=== PATIENT | female | born 1990 | race Caucasian/White ===

== ENCOUNTER 2019-05-22 21:06 | Emergency (ER) | payer OTHER ==
[~2019-05-22] VITALS: Ht 177.8 cm; Wt 111.9 kg
[~2019-05-22 21:06] MED LIST: BENADRYL PO; BIRTH CONTROL PILL PO; PAXIL PO; PHEN-786 PO; SONATA PO; ZOFRAN PO
[2019-05-22 21:09] VITALS: BP 141/88
[2019-05-22] MEDS ORDERED: HYDROcodone/acetaminophen 10/325mg tab PO ONE (22:45)
[2019-05-22] MEDS ORDERED: LIDOcaine 1% w/epiNEPHrine 1:200,000 30ml vial IM ONE (22:45)
[2019-05-22] MEDS ORDERED: HYDR-4353 PO (23:42)
== END 2019-05-22 23:58 | disposition home or self-care (01) ==
LOC: ER 21:07
DX: S62.356A Nondisplaced fracture of shaft of fifth metacarpal bone, right hand, initial encounter for closed fracture (principal); G89.29 Other chronic pain; F41.9 Anxiety disorder, unspecified; Z90.49 Acquired absence of other specified parts of digestive tract; Z98.890 Other specified postprocedural states; Z79.899 Other long term (current) drug therapy; W22.09XA Striking against other stationary object, initial encounter; Y93.89 Activity, other specified; Y92.89 Other specified places as the place of occurrence of the external cause; Y99.8 Other external cause status
CPT/HCPCS: 26605; 73130; 99284

== ENCOUNTER 2019-06-03 16:15 | Outpatient (CLI) | payer OTHER ==
[2019-07-11] MEDS ORDERED: LISD60CA PO (12:48)
[2019-07-11] MEDS ORDERED: PARO30TA4 PO (12:48)
== END 2019-06-03 17:20 | disposition home or self-care (01) ==
LOC: ORTHO 16:15
PROVIDERS: ATTEND Orthopaedic Surgery
DX: S62.326D Displaced fracture of shaft of fifth metacarpal bone, right hand, subsequent encounter for fracture with routine healing (principal); Z87.891 Personal history of nicotine dependence; X58.XXXD Exposure to other specified factors, subsequent encounter
CPT/HCPCS: 73130; G0463

== ENCOUNTER 2019-06-17 15:00 | Outpatient (CLI) | payer SELFPAY ==
[2019-07-11] MEDS ORDERED: PARO30TA4 PO (12:48)
[2019-07-11] MEDS ORDERED: LISD60CA PO (12:48)
== END 2019-06-17 16:40 | disposition home or self-care (01) ==
LOC: ORTHO 15:00
PROVIDERS: ATTEND Orthopaedic Surgery
DX: S62.326D Displaced fracture of shaft of fifth metacarpal bone, right hand, subsequent encounter for fracture with routine healing (principal); Z87.891 Personal history of nicotine dependence; X58.XXXD Exposure to other specified factors, subsequent encounter
CPT/HCPCS: 73130

== ENCOUNTER 2019-07-16 10:09 | Day surgery (SDC) | payer OTHER ==
[2019-07-11 12:46] LABS: BASOPHILS # (AUTO) 0.1 X10'3 (0-0.2); EOSINOPHILS # (AUTO) 0.3 X10'3 (0-0.9); EOSINOPHILS % (AUTO) 4.1 % (0-6); LYMPHOCYTES # (AUTO) 2.3 X10'3 (1.1-4.8); MEAN CORPUSCULAR HGB CONC 34.1 g/dL (33.0-36.5); MEAN CORPUSCULAR VOLUME 93.7 FL (78-98); MEAN PLATELET VOLUME 8.6 FL (7.4-10.4); MONOCYTES # (AUTO) 0.5 X10'3 (0-0.9); MONOCYTES % (AUTO) 6.2 % (2-12); NEUTROPHILS # (AUTO) 4.7 X10'3 (1.8-7.7); NEUTROPHILS % (AUTO) 59.7 % (42-75); PRE OP HEMATOCRIT 42.8 % (35.0-45.0); PRE OP HEMOGLOBIN 14.6 g/dL (12.0-16.0); PRE OP PLATELET COUNT 264 X10'3 (140-440); RED BLOOD COUNT 4.57 X10'6 (4.20-5.60); RED CELL DISTRIBUTION WIDTH 13.6 % (11.5-14.5)
[2019-07-11 13:05] LABS: ALBUMIN 3.5 G/DL (3.4-5.0); ALBUMIN/GLOBULIN RATIO 0.9 (1.1-1.5); ALKALINE PHOSPHATASE 74 IU/L (46-116); BLOOD UREA NITROGEN 10 MG/DL (7-18); BUN/CREATININE RATIO 12.7 (6.6-38.0); CHLORIDE 106 MMOL/L (99-107); CREATININE 0.79 MG/DL (0.40-0.90); PRE OP ALT 24 U/L (30-65); PRE OP ANION GAP 10 (8-16); PRE OP AST 20 U/L (10-37); PRE OP BILIRUB, TOTAL 0.1 MG/DL (0.0-1.0); PRE OP GLUCOSE 110 MG/DL (70-104); PRE OP SODIUM 140 MMOL/L (135-145); TOTAL CARBON DIOXIDE 24.1 MMOL/L (24-32); TOTAL PROTEIN 7.6 G/DL (6.4-8.2); eGFR 87 ML/MIN
[2019-07-11 13:07] LABS: PRE OP POTASSIUM 4.1 MMOL/L (3.4-5.1)
[2019-07-16] VITALS (9 sets, daily range): BP systolic 101–131; BP diastolic 51–81
[~2019-07-16] VITALS: Ht 175.3 cm; Wt 105.4 kg
[~2019-07-16 10:09] MED LIST changes: -BENADRYL PO; -BIRTH CONTROL PILL PO; +LISD60CA PO; +PARO30TA4 PO; -PAXIL PO; -PHEN-786 PO; -SONATA PO; -ZOFRAN PO
[2019-07-16] MEDS ORDERED: cloNIDine hcl/PF 100mcg/ml inj ONE (13:45)
[2019-07-16] MEDS ORDERED: ROPIVAcaine 0.5% (5mg/ml) 30ml vial ONE (13:45)
[2019-07-16] MEDS ORDERED: cefazolin/dext.iso 2gm/50ml 50 ML IV ONE (14:30)
[2019-07-16] MEDS ORDERED: famotidine 20mg tablet PO ONE (14:30)
[2019-07-16] MEDS ORDERED: diazepam 5mg tablet PO ONE (14:30)
[2019-07-16] MEDS ORDERED: ringers solution, lacted 1,000 ML IV SCH ×2 (14:30→16:11)
[2019-07-16] MEDS ORDERED: propofol inj 20 ML IV ONE (14:42)
[2019-07-16] MEDS ORDERED: fentaNYL/PF 50MCG/1 ML 2ML syringe ONE (14:42)
[2019-07-16] MEDS ORDERED: midazolam 2 mg/2 ml injection ONE (14:43)
[2019-07-16] MEDS ORDERED: sevoflurane 250ml liquid IH ONE (15:01)
--- NOTE | 2019-07-16 15:42 | NUR ---
Pt left floor by wheelchair to vehicle without incident. Pt stable and alert, states she understands DC info, family at bedside to receive also. IV DC'd. Fingers remain pink and cap refill present and quick, she's able to wiggle them, but still feels numb. Pt has script filled at home for pain meds. Pt knows to follow up in one week. Pt has all belongings upon DC. Addendum: 07/16/19 at 1859 by Mishel Silva RN Right note but incorrect time, DC happened at 1814
[2019-07-16] MEDS ORDERED: ondansetron/PF 4mg/2ml inj ONE (15:48)
[2019-07-16] MEDS ORDERED: dexamethasone sod phosphate 4mg/ml inj. ONE (15:48)
[2019-07-16] MEDS ORDERED: proCHLORperazine 10 MG/2 ml inj IV PRN (16:15)
[2019-07-16] MEDS ORDERED: meperidine/PF 25mg/ml syringe IV PRN ×3 (16:15)
[2019-07-16] MEDS ORDERED: ondansetron/PF 4mg/2ml inj IV PRN (16:15)
[2019-07-16] MEDS ORDERED: morphine 4 MG/ML inj SYRINge IV PRN ×2 (16:15)
--- NOTE | 2019-07-16 16:44 | NUR ---
Received from OR via [facility], accompanied by Anesthesiologist Mk and report given by Anesthesiolgist. Pt is responsive to questions but sleepy, all VS stable 10L O2 99% and the patient's right hand has hard splint and VIDYA wrap present. Pt able to wiggle fingers despite block, complains of no pain. IVF LR running 100/hr in left hand 20G IV.
--- NOTE | 2019-07-16 18:25 | NUR ---
Received from OR via [facility], accompanied by Anesthesiologist CARIE and report given by Anesthesiolgist. Pt VS stable, pt alert and responsible to questions, left hand wrapped in hard splint and VIDYA wrap, IV to right lower forearm 20G 100cc/hr LR IVF. Addendum: 07/16/19 at 1840 by Mishel Silva RN Incorrect order Addendum: 07/16/19 at 1841 by Mishel Silva RN Incorrect note on incorrect patient
== END 2019-07-16 18:14 | disposition home or self-care (01) ==
LOC: PAS 10:09
PROVIDERS: ATTEND Orthopaedic Surgery
DX: S62.326P Displaced fracture of shaft of fifth metacarpal bone, right hand, subsequent encounter for fracture with malunion (principal); X58.XXXD Exposure to other specified factors, subsequent encounter; F17.210 Nicotine dependence, cigarettes, uncomplicated; F41.1 Generalized anxiety disorder; Z79.899 Other long term (current) drug therapy; Z98.890 Other specified postprocedural states; Z90.49 Acquired absence of other specified parts of digestive tract
CPT/HCPCS: 26615; 36415; 80053; 82948; 85025; 93005; A6222; C1713; J0735; J1100; J2250; J2405; J2704; J3010; J7120; A4215; A4565; A4618; A6449; A7000; J2795

== ENCOUNTER 2019-08-24 23:19 | Emergency (ER) | payer OTHER ==
[~2019-08-24] VITALS: Ht 177.8 cm; Wt 107.0 kg
[2019-08-25] MEDS ORDERED: ondansetron 4mg rapidly disintigrating tab PO ONE
[2019-08-25] MEDS ORDERED: mag hydrox/Alum hydrox/simeth 30ml oral suspension PO ONE (00:10)
[2019-08-25] MEDS ORDERED: normal saline 1000ml 1,000 ML IV ONE (00:10)
[2019-08-25] MEDS ORDERED: famotidine/PF 10 mg/ml inj IV ONE (00:10)
[2019-08-25] MEDS ORDERED: ondansetron/PF 4mg/2ml inj IV ONE ×2 (00:10→02:55)
[2019-08-25] MEDS ORDERED: diphenhydrAMINE 50 mg/ml inj IV ONE (01:05)
[2019-08-25] MEDS ORDERED: metoclopramide 5 mg/ml inj IV ONE (01:05)
[2019-08-25 01:36] LABS: BASOPHILS # (AUTO) 0.1 X10'3 (0-0.2); BASOPHILS % (AUTO) 0.6 % (0-1); EOSINOPHILS # (AUTO) 0.1 X10'3 (0-0.9); EOSINOPHILS % (AUTO) 0.3 % (0-6); HEMATOCRIT 40.6 % (35.0-45.0); LYMPHOCYTES # (AUTO) 2.5 X10'3 (1.1-4.8); LYMPHOCYTES % (AUTO) 16.7 % (21-51); MEAN CORPUSCULAR HEMOGLOBIN 31.7 PG (27.0-31.0); MEAN CORPUSCULAR HGB CONC 34.5 g/dL (33.0-36.5); MEAN CORPUSCULAR VOLUME 91.8 FL (78-98); MEAN PLATELET VOLUME 8.4 FL (7.4-10.4); MONOCYTES # (AUTO) 0.7 X10'3 (0-0.9); MONOCYTES % (AUTO) 4.5 % (2-12); NEUTROPHILS # (AUTO) 11.5 X10'3 (1.8-7.7); NEUTROPHILS % (AUTO) 77.9 % (42-75); PLATELET COUNT 274 X10'3 (140-440); RED BLOOD COUNT 4.42 X10'6 (4.20-5.60); RED CELL DISTRIBUTION WIDTH 13.4 % (11.5-14.5); WHITE BLOOD COUNT 14.8 X10'3 (4.5-11.0)
[2019-08-25 01:50] LABS: ALANINE AMINOTRANSFERASE 23 U/L (12-78); ALBUMIN 3.9 G/DL (3.4-5.0); ALKALINE PHOSPHATASE 85 IU/L (46-116); ANION GAP 16 (8-16); ASPARTATE AMINO TRANSFERASE 17 U/L (10-37); BILIRUBIN,TOTAL 0.4 MG/DL (0.1-1.0); BLOOD UREA NITROGEN 13 MG/DL (7-18); BUN/CREATININE RATIO 15.5 (6.6-38.0); CALCIUM 9.2 MG/DL (8.5-10.1); CHLORIDE 103 MMOL/L (99-107); CREATININE 0.84 MG/DL (0.40-0.90); GLUCOSE 140 MG/DL (70-104); POTASSIUM 3.2 MMOL/L (3.5-5.1); SODIUM 140 MMOL/L (135-145); TOTAL PROTEIN 7.8 G/DL (6.4-8.2); eGFR 81 ML/MIN
[2019-08-25 01:53] LABS: LIPASE < 50 U/L (73-393); TROPONIN I < 0.04 NG/ML (0.0-0.05)
[2019-08-25] MEDS ORDERED: pantoprazole 40 MG vial IV ONE (01:55)
[2019-08-25] MEDS ORDERED: potassium Cl 20 mEq SR tablet PO STA (02:17)
[2019-08-25] MEDS ORDERED: PANT-47 PO (02:20)
[2019-08-25] MEDS ORDERED: ONDA8TAB6 PO (02:20)
[2019-08-25] MEDS ORDERED: LORazepam 2 mg/ml vial IV ONE ×2 (03:10→04:50)
[2019-08-25] MEDS ORDERED: haloperidol lactate 5mg/ml inj IM ONE ×2 (03:15→04:55)
--- NOTE | 2019-08-25 03:34 | NUR ---
PT RELUCTANT TO TAKE ANY PO MEDICATION R/T N/V. PT AGREED TO TRY MAALOX. A SHORT TIME LATER PATIENT VOMITED MAALOX AND BILE. PT STATES SHE'S TOO NAUSEOUS TO SWALLOW POTASSIUM TABLET. MD AWARE OF PT'S CONTINUED N/V
[2019-08-25] MEDS ORDERED: PROM25SU46 RC (04:49)
[2019-08-25 05:12] LABS: CLARITY,URINE CLEAR (Clear); COLOR,URINE YELLOW (Yellow); GLUCOSE, URINE NEGATIVE (Neg); KETONES,URINE 40 mg/dl (Neg); LEUKOCYTE ESTERASE ,URINE NEGATIVE (Neg); NITRITES, URINE NEGATIVE (Neg); OCCULT BLOOD,URINE SMALL (Neg); PH,URINE 7.5 (4.8-8.0); PROTEIN,URINE NEGATIVE (Neg); UROBILINOGEN,URINE 0.2 E.U/dL (0.2-1.0)
[2019-08-25 05:19] LABS: UA COLLECTION TYPE CLN CATCH MIDSTREAM
[2019-08-25 05:20] LABS: BACTERIA,URINE NONE SEEN /HPF (Neg); RBC,URINE 0-2 /HPF (0-2); SQUAMOUS EPITHELIAL CELL,UR FEW /LPF (FEW); WBC,URINE NONE SEEN /HPF (0-4)
--- NOTE | 2019-08-25 05:20 | NUR ---
pt states that moving in any way seems to make her nausea worse. Holding absolutely still is more comfortable.
[2019-08-25 05:21] LABS: URINE HCG NEGATIVE (NEG)
[2019-08-25 06:10] VITALS: BP 131/82
== END 2019-08-25 06:16 | disposition home or self-care (01) ==
LOC: ER 23:19
DX: K29.00 Acute gastritis without bleeding (principal); G89.29 Other chronic pain; F41.9 Anxiety disorder, unspecified; Z90.49 Acquired absence of other specified parts of digestive tract; Z98.890 Other specified postprocedural states; Z79.899 Other long term (current) drug therapy
CPT/HCPCS: 36415; 80053; 81001; 81025; 83690; 84484; 85025; 85610; 93005; 96361; 96372; 96374; 96375; 96376; 99284; C9113; J1200; J1630; J2060; J2405; J2765; J3490; J7030

== ENCOUNTER 2019-08-26 00:30 | Emergency (ER) | payer OTHER ==
[~2019-08-26] VITALS: Ht 177.8 cm; Wt 109.0 kg
[~2019-08-26 00:30] MED LIST changes: +ONDA8TAB6 PO; +PANT-47 PO; +PROM25SU46 RC
[2019-08-26] MEDS ORDERED: ondansetron 4mg rapidly disintigrating tab PO ONE (01:30)
[2019-08-26 01:38] LABS: BASOPHILS # (AUTO) 0.1 X10'3 (0-0.2); BASOPHILS % (AUTO) 0.5 % (0-1); EOSINOPHILS % (AUTO) 0.1 % (0-6); HEMATOCRIT 43.5 % (35.0-45.0); LYMPHOCYTES # (AUTO) 1.9 X10'3 (1.1-4.8); LYMPHOCYTES % (AUTO) 15.5 % (21-51); MEAN CORPUSCULAR HEMOGLOBIN 31.7 PG (27.0-31.0); MEAN CORPUSCULAR HGB CONC 34.4 g/dL (33.0-36.5); MEAN CORPUSCULAR VOLUME 92.1 FL (78-98); MEAN PLATELET VOLUME 8.7 FL (7.4-10.4); MONOCYTES % (AUTO) 7.8 % (2-12); NEUTROPHILS # (AUTO) 9.3 X10'3 (1.8-7.7); NEUTROPHILS % (AUTO) 76.1 % (42-75); PLATELET COUNT 302 X10'3 (140-440); RED BLOOD COUNT 4.73 X10'6 (4.20-5.60); RED CELL DISTRIBUTION WIDTH 13.4 % (11.5-14.5); WHITE BLOOD COUNT 12.2 X10'3 (4.5-11.0)
[2019-08-26 01:39] LABS: ALANINE AMINOTRANSFERASE 24 U/L (12-78); ALKALINE PHOSPHATASE 88 IU/L (46-116); ANION GAP 10 (8-16); ASPARTATE AMINO TRANSFERASE 17 U/L (10-37); BILIRUBIN,TOTAL 0.4 MG/DL (0.1-1.0); BLOOD UREA NITROGEN 13 MG/DL (7-18); CALCIUM 9.6 MG/DL (8.5-10.1); CHLORIDE 102 MMOL/L (99-107); GLUCOSE 119 MG/DL (70-104); POTASSIUM 3.4 MMOL/L (3.5-5.1); SODIUM 137 MMOL/L (135-145); TOTAL CARBON DIOXIDE 25.4 MMOL/L (24-32); TOTAL PROTEIN 8.2 G/DL (6.4-8.2); eGFR 67 ML/MIN
[2019-08-26] MEDS ORDERED: pantoprazole 40 MG vial IV ONE (01:40)
[2019-08-26] MEDS ORDERED: ondansetron/PF 4mg/2ml inj IV ONE (01:40)
[2019-08-26] MEDS ORDERED: LORazepam 2 mg/ml vial IV ONE (01:40)
[2019-08-26] MEDS ORDERED: proCHLORperazine 10 MG/2 ml inj IV ONE (01:40)
[2019-08-26] MEDS ORDERED: haloperidol lactate 5mg/ml inj IM ONE (01:40)
[2019-08-26] MEDS ORDERED: normal saline 1000ML IV soln IVB ONE (01:40)
[2019-08-26] MEDS ORDERED: famotidine/PF 10 mg/ml inj IV ONE (01:40)
[2019-08-26 02:46] LABS: LIPASE 61 U/L (73-393)
[2019-08-26] MEDS ORDERED: sucralfate 1gm/10ml UD suspension PO ONE (02:50)
[2019-08-26 03:33] VITALS: BP 126/67
[2019-08-27] MEDS ORDERED: PANT-47 PO (12:59)
[2019-08-27] MEDS ORDERED: PROM25SU46 RC (13:01)
== END 2019-08-26 03:45 | disposition home or self-care (01) ==
LOC: ER 00:31
DX: R11.2 Nausea with vomiting, unspecified (principal); R10.9 Unspecified abdominal pain; G89.29 Other chronic pain; F41.9 Anxiety disorder, unspecified; Z79.899 Other long term (current) drug therapy; Z90.49 Acquired absence of other specified parts of digestive tract; Z98.890 Other specified postprocedural states
CPT/HCPCS: 36415; 80053; 83690; 85025; 96361; 96372; 96374; 96375; 99283; C9113; J0780; J1630; J2060; J2405; J3490; J7030

== ENCOUNTER 2019-08-27 07:08 | Inpatient (IN) | payer OTHER ==
[~2019-08-27] VITALS: Ht 175.3 cm; Wt 105.2 kg
[2019-08-27] MEDS ORDERED: LORazepam 2 mg/ml vial IV ONE (08:35)
[2019-08-27] MEDS ORDERED: proCHLORperazine 10 MG/2 ml inj IV ONE (08:35)
[2019-08-27] MEDS ORDERED: normal saline 1000ML IV soln IVB ONE (08:35)
[2019-08-27] MEDS ORDERED: morphine 2 MG/ML inj. syringe IV PRN ×2 (08:35→12:10)
[2019-08-27] MEDS ORDERED: PARoxetine 30mg tablet PO ONE (08:35)
[2019-08-27] MEDS ORDERED: PARoxetine 30mg tablet PO SCH (08:35)
[2019-08-27] MEDS ORDERED: pantoprazole 40 MG vial IV ONE (08:35)
[2019-08-27] MEDS ORDERED: PARoxetine 20mg tablet PO ONE (08:40)
--- NOTE | 2019-08-27 10:20 | NUR ---
pT STATES SHE IS STARTING TO FEEL BETTER BUT SHE IS NOT WANTING FLUID CHALLENGE YET.
[2019-08-27] MEDS ORDERED: magnesium 2GM in 50ml NS 50 ML IV PRN (12:10)
[2019-08-27] MEDS ORDERED: potassium CL 10mEq/100ml bag 100 ML IV PRN (12:10)
[2019-08-27] MEDS ORDERED: diphenhydrAMINE 25mg capsule PO PRN (12:10)
[2019-08-27] MEDS ORDERED: diphenhydrAMINE 50 mg/ml inj IV PRN (12:10)
[2019-08-27] MEDS ORDERED: magnesium hydroxide 30ml (MOM) UD suspension PO PRN (12:10)
[2019-08-27] MEDS ORDERED: HYDROcodone/acetaminophen 5mg/325mg tablet PO PRN (12:10)
[2019-08-27] MEDS ORDERED: mag hydrox/Alum hydrox/simeth 30ml oral suspension PO PRN (12:10)
[2019-08-27] MEDS ORDERED: potassium Cl 20 mEq SR tablet PO PRN ×2 (12:10)
[2019-08-27] MEDS ORDERED: acetaminophen 650mg rectal suppository RC PRN (12:10)
[2019-08-27] MEDS ORDERED: HYDROcodone/acetaminophen 10/325mg tab PO PRN (12:10)
[2019-08-27] MEDS ORDERED: bisacodyl 10mg suppository rectal RC PRN (12:10)
[2019-08-27] MEDS ORDERED: magnesium 4gm in 100ml NS 100 ML IV PRN (12:10)
[2019-08-27] MEDS: K and/or MAG REPLACEMENT MC SCH (12:10)
[2019-08-27] MEDS ORDERED: acetaminophen 325mg tablet PO PRN ×2 (12:10)
[2019-08-27] MEDS ORDERED: magnesium Cl slow-release 64mg tablet PO PRN (12:10)
[2019-08-27 12:52] LABS: BASOPHILS # (AUTO) 0.1 X10'3 (0-0.2); BASOPHILS % (AUTO) 0.4 % (0-1); EOSINOPHILS % (AUTO) 0.2 % (0-6); HEMATOCRIT 42.1 % (35.0-45.0); HEMOGLOBIN 14.5 g/dl (12.0-16.0); LYMPHOCYTES # (AUTO) 2.9 X10'3 (1.1-4.8); LYMPHOCYTES % (AUTO) 25.7 % (21-51); MEAN CORPUSCULAR HEMOGLOBIN 32.1 PG (27.0-31.0); MEAN CORPUSCULAR HGB CONC 34.5 g/dL (33.0-36.5); MEAN PLATELET VOLUME 8.6 FL (7.4-10.4); MONOCYTES % (AUTO) 8.9 % (2-12); NEUTROPHILS # (AUTO) 7.4 X10'3 (1.8-7.7); NEUTROPHILS % (AUTO) 64.8 % (42-75); PLATELET COUNT 255 X10'3 (140-440); RED BLOOD COUNT 4.53 X10'6 (4.20-5.60); RED CELL DISTRIBUTION WIDTH 13.2 % (11.5-14.5); WHITE BLOOD COUNT 11.4 X10'3 (4.5-11.0)
[2019-08-27] MEDS ORDERED: PANT-47 PO (12:59)
[2019-08-27] MEDS: pantoprazole 40 MG vial IV SCH ×2 (13:00→19:27)
[2019-08-27] MEDS: dextrose 5%-normal saline 1,000 ML IV SCH ×2 (13:00→20:43)
--- NOTE | 2019-08-27 13:00 | NUR ---
LAB CALLED [facility] REPORTS THEY NEED A NEW BLOOD DRAW IN BED 12, LAST LAB DRAW HEMOLYZED.
[2019-08-27] MEDS ORDERED: PROM25SU46 RC (13:01)
[2019-08-27] MEDS: ondansetron/PF 4mg/2ml inj IV PRN ×2 (13:19→19:26)
[2019-08-27 13:28] LABS: CLARITY,URINE CLOUDY (Clear); COLOR,URINE YELLOW (Yellow); GLUCOSE, URINE NEGATIVE (Neg); KETONES,URINE 40 mg/dl (Neg); LEUKOCYTE ESTERASE ,URINE NEGATIVE (Neg); NITRITES, URINE NEGATIVE (Neg); OCCULT BLOOD,URINE LARGE (Neg); PH,URINE 6.5 (4.8-8.0); PROTEIN,URINE TRACE mg/dl (Neg); UA COLLECTION TYPE OTHER; UROBILINOGEN,URINE 0.2 E.U/dL (0.2-1.0)
[2019-08-27 13:34] LABS: MUCUS STRANDS MANY /LPF (Neg); RBC,URINE 50-100 /HPF (0-2); SQUAMOUS EPITHELIAL CELL,UR MANY /LPF (FEW)
[2019-08-27 13:35] LABS: BACTERIA,URINE 2+ /HPF (Neg); WBC,URINE 0-4 /HPF (0-4)
[2019-08-27 13:37] LABS: URINE AMPHETAMINE SCREEN NEGATIVE (Neg); URINE BARBITUATE SCREEN NEGATIVE (Neg); URINE BENZODIAZEPINES SCREEN NEGATIVE (Neg); URINE CANNABINOID SCREEN POSITIVE (Neg); URINE COCAINE SCREEN NEGATIVE (Neg); URINE METHADONE SCREEN NEGATIVE (Neg); URINE OPIATE SCREEN POSITIVE (Neg); URINE PHENCYCLIDINE SCREEN NEGATIVE (Neg)
[2019-08-27 13:45] LABS: ALANINE AMINOTRANSFERASE 20 U/L (12-78); ALKALINE PHOSPHATASE 80 IU/L (46-116); ANION GAP 11 (8-16); ASPARTATE AMINO TRANSFERASE 13 U/L (10-37); BILIRUBIN,TOTAL 0.4 MG/DL (0.1-1.0); BLOOD UREA NITROGEN 12 MG/DL (7-18); BUN/CREATININE RATIO 16.2 (6.6-38.0); CALCIUM 8.9 MG/DL (8.5-10.1); CHLORIDE 103 MMOL/L (99-107); CREATININE 0.74 MG/DL (0.40-0.90); GLUCOSE 104 MG/DL (70-104); POTASSIUM 3.7 MMOL/L (3.5-5.1); SODIUM 141 MMOL/L (135-145); TOTAL CARBON DIOXIDE 26.7 MMOL/L (24-32); eGFR > 90 ML/MIN
[2019-08-27 13:55] LABS: MAGNESIUM 1.9 MG/DL (1.5-2.4); PHOSPHORUS 3.1 MG/DL (2.3-4.5)
[2019-08-27] MEDS: metoclopramide 5 mg/ml inj IV PRN ×2 (14:48→22:16)
--- NOTE | 2019-08-27 14:52 | NUR ---
PT WAS RESTING FOR A WHILE AFTER ZOFRAN NOW SHE VOMITED 200 ML ADMINISTERED REGLAN ORDERED
--- NOTE | 2019-08-27 17:47 | NUR ---
PT WOKE UP FROM NAUSEA.
[2019-08-27] MEDS: proMETHazine 25mg rectal suppository RC PRN (18:02)
[2019-08-27] MEDS: heparin, porcine 5000 units/ml vial SQ SCH (19:26)
[2019-08-27] MEDS ORDERED: haloperidol lactate 5mg/ml inj IM ONE (21:20)
[2019-08-27 22:05] VITALS: BP 151/98
--- NOTE | 2019-08-27 22:05 | NUR ---
PATIENT ADMITTED TO ROOM 360B FROM ER FOR INTRACTABLE NAUSEA AND VOMITING. PLACED COMFORTABLE IN BED. VITAL SIGNS TAKEN AND RECORDED.
[2019-08-27] MEDS: haloperidol lactate 5mg/ml inj IM PRN (23:15)
[2019-08-27] MEDS: morphine 2 MG/ML inj. syringe IV PRN (23:19)
[2019-08-28] VITALS: BP 151/85
[2019-08-28] MEDS: ondansetron/PF 4mg/2ml inj IV PRN (04:50)
[2019-08-28] MEDS: morphine 2 MG/ML inj. syringe IV PRN ×2 (04:53→11:49)
[2019-08-28] MEDS: dextrose 5%-normal saline 1,000 ML IV SCH ×3 (04:57→18:56)
--- NOTE | 2019-08-28 06:30 | NUR ---
Problems reprioritized. Patient report given, questions answered & plan of care reviewed with SOMMER BENITEZ.
[2019-08-28 06:57] LABS: BASOPHILS # (AUTO) 0.1 X10'3 (0-0.2); BASOPHILS % (AUTO) 0.5 % (0-1); EOSINOPHILS # (AUTO) 0.1 X10'3 (0-0.9); EOSINOPHILS % (AUTO) 0.7 % (0-6); HEMATOCRIT 41.1 % (35.0-45.0); HEMOGLOBIN 13.9 g/dl (12.0-16.0); LYMPHOCYTES # (AUTO) 3.2 X10'3 (1.1-4.8); LYMPHOCYTES % (AUTO) 28.4 % (21-51); MEAN CORPUSCULAR HEMOGLOBIN 31.5 PG (27.0-31.0); MEAN CORPUSCULAR HGB CONC 33.8 g/dL (33.0-36.5); MEAN CORPUSCULAR VOLUME 93.3 FL (78-98); MEAN PLATELET VOLUME 9.1 FL (7.4-10.4); MONOCYTES % (AUTO) 9.4 % (2-12); NEUTROPHILS # (AUTO) 6.8 X10'3 (1.8-7.7); PLATELET COUNT 249 X10'3 (140-440); RED BLOOD COUNT 4.41 X10'6 (4.20-5.60); RED CELL DISTRIBUTION WIDTH 13.3 % (11.5-14.5); WHITE BLOOD COUNT 11.1 X10'3 (4.5-11.0)
[2019-08-28 07:09] LABS: ALANINE AMINOTRANSFERASE 21 U/L (12-78); ALBUMIN 3.6 G/DL (3.4-5.0); ALKALINE PHOSPHATASE 73 IU/L (46-116); ANION GAP 10 (8-16); ASPARTATE AMINO TRANSFERASE 18 U/L (10-37); BILIRUBIN,TOTAL 0.4 MG/DL (0.1-1.0); BLOOD UREA NITROGEN 7 MG/DL (7-18); BUN/CREATININE RATIO 10.3 (6.6-38.0); CALCIUM 8.7 MG/DL (8.5-10.1); CHLORIDE 102 MMOL/L (99-107); CHOL/HDL RATIO 2.5 (0.00-4.99); CHOLESTEROL 145 MG/DL (0-200); CREATININE 0.68 MG/DL (0.40-0.90); GLUCOSE 113 MG/DL (70-104); HDL CHOLESTEROL 59 MG/DL (35-60); LDL CHOLESTEROL 66 MG/DL (50-100); MAGNESIUM 1.8 MG/DL (1.5-2.4); PHOSPHORUS 3.3 MG/DL (2.3-4.5); SODIUM 139 MMOL/L (135-145); TOTAL CARBON DIOXIDE 27.4 MMOL/L (24-32); TOTAL PROTEIN 7.3 G/DL (6.4-8.2); TRIGLYCERIDES 191 MG/DL (20-135); eGFR > 90 ML/MIN
[2019-08-28 07:10] LABS: POTASSIUM 3.2 MMOL/L (3.5-5.1)
[2019-08-28 07:35] VITALS: BP 135/87
[2019-08-28] MEDS: PARoxetine 20mg tablet PO SCH (08:00)
[2019-08-28] MEDS ORDERED: PARoxetine 30mg tablet PO SCH (08:00)
[2019-08-28] MEDS: K and/or MAG REPLACEMENT MC SCH (08:00)
[2019-08-28] MEDS: heparin, porcine 5000 units/ml vial SQ SCH ×2 (08:14→19:28)
[2019-08-28] MEDS: pantoprazole 40 MG vial IV SCH ×2 (08:20→19:27)
[2019-08-28] MEDS: proMETHazine 25mg rectal suppository RC PRN (08:22)
[2019-08-28] MEDS: potassium CL 10mEq/100ml bag 100 ML IV PRN ×4 (08:22→17:14)
[2019-08-28] MEDS: metoclopramide 5 mg/ml inj IV PRN ×2 (11:42→19:27)
[2019-08-28 12:00] VITALS: BP 157/95
--- NOTE | 2019-08-28 12:30 | NUR ---
RATE OF K REPLACEMENT SLOWED TO 8 mEq AN HR DUE TO PT EXPRESSING DISCOMFORT AND BURNING SENSATION
[2019-08-28] MEDS: nicotine 21mg patch - 24 hr TD SCH (13:30)
[2019-08-28] MEDS ORDERED: scopolamine 1.5mg patch.TD72 TD SCH (13:30)
[2019-08-28] MEDS ORDERED: acetaminophen 650mg rectal suppository RC PRN (15:25)
[2019-08-28] MEDS: haloperidol lactate 5mg/ml inj IM PRN (17:16)
[2019-08-28 18:00] VITALS: BP 138/93
--- NOTE | 2019-08-28 18:10 | NUR ---
Patient in room [facility]. I have received report from Shira BENITEZ and had the opportunity to ask questions and assume patient care.
--- NOTE | 2019-08-28 18:21 | NUR ---
Problems reprioritized. Patient report given, questions answered & plan of care reviewed with EMMANUEL Hall.
[2019-08-28] MEDS: CefTRIAXone/D5W-Rocephin 1gm 50 ML IV SCH (21:45)
[2019-08-28] MEDS ORDERED: temazepam 15mg capsule PO PRN (23:30)
[2019-08-29] VITALS: BP 133/90
[2019-08-29] MEDS: proMETHazine 25mg rectal suppository RC PRN ×2 (00:58→11:28)
[2019-08-29] MEDS: haloperidol lactate 5mg/ml inj IM PRN (01:02)
[2019-08-29] MEDS: dextrose 5%-normal saline 1,000 ML IV SCH ×2 (04:36→12:10)
[2019-08-29 05:47] LABS: BASOPHILS % (AUTO) 0.5 % (0-1); EOSINOPHILS # (AUTO) 0.1 X10'3 (0-0.9); EOSINOPHILS % (AUTO) 1.2 % (0-6); HEMATOCRIT 40.6 % (35.0-45.0); HEMOGLOBIN 13.9 g/dl (12.0-16.0); LYMPHOCYTES # (AUTO) 3.4 X10'3 (1.1-4.8); LYMPHOCYTES % (AUTO) 38.4 % (21-51); MEAN CORPUSCULAR HEMOGLOBIN 31.9 PG (27.0-31.0); MEAN CORPUSCULAR HGB CONC 34.3 g/dL (33.0-36.5); MEAN PLATELET VOLUME 8.9 FL (7.4-10.4); MONOCYTES # (AUTO) 0.9 X10'3 (0-0.9); MONOCYTES % (AUTO) 10.5 % (2-12); NEUTROPHILS # (AUTO) 4.3 X10'3 (1.8-7.7); NEUTROPHILS % (AUTO) 49.4 % (42-75); PLATELET COUNT 228 X10'3 (140-440); RED BLOOD COUNT 4.37 X10'6 (4.20-5.60); RED CELL DISTRIBUTION WIDTH 13.2 % (11.5-14.5); WHITE BLOOD COUNT 8.8 X10'3 (4.5-11.0)
[2019-08-29 06:05] LABS: ALANINE AMINOTRANSFERASE 26 U/L (12-78); ALBUMIN 3.5 G/DL (3.4-5.0); ALKALINE PHOSPHATASE 74 IU/L (46-116); ANION GAP 9 (8-16); ASPARTATE AMINO TRANSFERASE 15 U/L (10-37); BILIRUBIN,TOTAL 0.3 MG/DL (0.1-1.0); BLOOD UREA NITROGEN 4 MG/DL (7-18); BUN/CREATININE RATIO 5.6 (6.6-38.0); CALCIUM 8.6 MG/DL (8.5-10.1); CHLORIDE 106 MMOL/L (99-107); CREATININE 0.71 MG/DL (0.40-0.90); GLUCOSE 98 MG/DL (70-104); MAGNESIUM 1.8 MG/DL (1.5-2.4); PHOSPHORUS 3.8 MG/DL (2.3-4.5); POTASSIUM 3.4 MMOL/L (3.5-5.1); SODIUM 142 MMOL/L (135-145); TOTAL CARBON DIOXIDE 27.2 MMOL/L (24-32); TOTAL PROTEIN 6.9 G/DL (6.4-8.2); eGFR > 90 ML/MIN
--- NOTE | 2019-08-29 06:23 | NUR ---
Problems reprioritized. Patient report given, questions answered & plan of care reviewed with Shira BENITEZ.
[2019-08-29] MEDS: metoclopramide 5 mg/ml inj IV PRN (07:57)
[2019-08-29] MEDS: PARoxetine 20mg tablet PO SCH ×2 (08:00→11:28)
[2019-08-29] MEDS: nicotine 21mg patch - 24 hr TD SCH (08:00)
[2019-08-29] MEDS: pantoprazole 40 MG vial IV SCH (08:08)
[2019-08-29] MEDS: potassium CL 10mEq/100ml bag 100 ML IV PRN ×3 (08:08→13:05)
[2019-08-29] MEDS: CefTRIAXone/D5W-Rocephin 1gm 50 ML IV SCH (08:14)
[2019-08-29] MEDS: heparin, porcine 5000 units/ml vial SQ SCH (08:26)
[2019-08-29] MEDS: K and/or MAG REPLACEMENT MC SCH (08:36)
[2019-08-29 09:13] VITALS: BP 138/92
[2019-08-29 11:55] VITALS: BP 141/86
[2019-08-29] MEDS ORDERED: CEFD300C3 PO (13:53)
[2019-08-29] MEDS ORDERED: ONDA4TAB6 PO (13:53)
--- NOTE | 2019-08-29 14:52 | NUR ---
Patient stable and appropriate for discharge to home. IV discontinued, all belongings taken from room, valuables picked up from front desk manager. New prescriptions transmitted to pt preferred pharmacy.
[2019-08-29] MEDS ORDERED: lactobacillus rhamnosus 10,000 MMU CELLS/CAPSULE PO SCH (20:00)
== END 2019-08-29 14:55 | disposition home or self-care (01) | DRG 897 ==
LOC: ER 07:09 → ED HOLD 12:10 → CMPBEDREQ 21:58 → SUR 3N 22:00
PROVIDERS: ADMIT Family Medicine; ATTEND Family Medicine
DX: F12.188 Cannabis abuse with other cannabis-induced disorder (principal); N39.0 Urinary tract infection, site not specified; E87.6 Hypokalemia; F41.1 Generalized anxiety disorder; K59.00 Constipation, unspecified; F41.9 Anxiety disorder, unspecified; K29.70 Gastritis, unspecified, without bleeding; G89.29 Other chronic pain; M54.9 Dorsalgia, unspecified; K21.9 Gastro-esophageal reflux disease without esophagitis; Z83.3 Family history of diabetes mellitus; Z87.891 Personal history of nicotine dependence; Z90.49 Acquired absence of other specified parts of digestive tract
CPT/HCPCS: 36415; 80053; 80061; 80305; 81001; 83036; 83735; 84100; 84443; 85025; 87081; 87088; C9113; G0378; J0696; J0780; J1630; J1644; J2060; J2270; J2405; J2765; J3480; J7042

== ENCOUNTER 2019-10-13 15:42 | Emergency (ER) | payer OTHER ==
[~2019-10-13] VITALS: Ht 177.8 cm; Wt 90.0 kg
[~2019-10-13 15:42] MED LIST changes: -LISD60CA PO; +ONDA4TAB6 PO; -ONDA8TAB6 PO; -PROM25SU46 RC
[2019-10-13] MEDS ORDERED: LORazepam 2 mg/ml vial IV ONE ×2 (16:10→18:35)
[2019-10-13] MEDS ORDERED: haloperidol lactate 5mg/ml inj IM ONE (16:10)
[2019-10-13] MEDS ORDERED: normal saline 1000ML IV soln IVB ONE (16:10)
[2019-10-13] MEDS ORDERED: diphenhydrAMINE 50 mg/ml inj IV ONE (16:10)
[2019-10-13 16:40] LABS: BASOPHILS % (AUTO) 0.3 % (0-1); EOSINOPHILS % (AUTO) 0 % (0-6); HEMATOCRIT 42.5 % (35.0-45.0); HEMOGLOBIN 14.9 g/dl (12.0-16.0); LYMPHOCYTES # (AUTO) 1.3 X10'3 (1.1-4.8); LYMPHOCYTES % (AUTO) 11.7 % (21-51); MEAN CORPUSCULAR VOLUME 91.6 FL (78-98); MEAN PLATELET VOLUME 8.9 FL (7.4-10.4); MONOCYTES # (AUTO) 0.3 X10'3 (0-0.9); MONOCYTES % (AUTO) 2.8 % (2-12); NEUTROPHILS # (AUTO) 9.2 X10'3 (1.8-7.7); NEUTROPHILS % (AUTO) 85.2 % (42-75); PLATELET COUNT 302 X10'3 (140-440); RED BLOOD COUNT 4.65 X10'6 (4.20-5.60); RED CELL DISTRIBUTION WIDTH 13.6 % (11.5-14.5); WHITE BLOOD COUNT 10.8 X10'3 (4.5-11.0)
[2019-10-13 16:57] LABS: ALANINE AMINOTRANSFERASE 26 U/L (12-78); ALBUMIN 4.3 G/DL (3.4-5.0); ALKALINE PHOSPHATASE 94 IU/L (46-116); ANION GAP 14 (8-16); ASPARTATE AMINO TRANSFERASE 20 U/L (10-37); BILIRUBIN,TOTAL 0.5 MG/DL (0.1-1.0); BLOOD UREA NITROGEN 13 MG/DL (7-18); BUN/CREATININE RATIO 12.4 (6.6-38.0); CALCIUM 9.2 MG/DL (8.5-10.1); CHLORIDE 102 MMOL/L (99-107); CREATININE 1.05 MG/DL (0.40-0.90); GLUCOSE 115 MG/DL (70-104); POTASSIUM 3.9 MMOL/L (3.5-5.1); SODIUM 137 MMOL/L (135-145); TOTAL CARBON DIOXIDE 21.5 MMOL/L (24-32); TOTAL PROTEIN 8.5 G/DL (6.4-8.2); eGFR 63 ML/MIN
[2019-10-13 18:20] VITALS: BP 130/81
== END 2019-10-13 19:11 | disposition home or self-care (01) ==
LOC: ER 15:42
DX: R11.15 Cyclical vomiting syndrome unrelated to migraine (principal); R42 Dizziness and giddiness; G89.29 Other chronic pain; F41.9 Anxiety disorder, unspecified; F12.90 Cannabis use, unspecified, uncomplicated; F17.210 Nicotine dependence, cigarettes, uncomplicated; Z90.49 Acquired absence of other specified parts of digestive tract; Z98.890 Other specified postprocedural states; Z79.899 Other long term (current) drug therapy
CPT/HCPCS: 36415; 71045; 80053; 85025; 93005; 96361; 96372; 96374; 96375; 96376; 99284; J1200; J1630; J2060; J7030